=== PATIENT | male | born 1995 | race Caucasian/White ===

== ENCOUNTER 2025-04-17 15:59 | Emergency (ER) | payer MEDICAID, OTHER ==
[~2025-04-17] VITALS: Ht 180.3 cm; Wt 74.8 kg
[2025-04-17] MEDS ORDERED: DOXY100C5 PO (16:49)
[2025-04-17 17:26] LABS: HIV-1 p24 ANTIGEN NON REACTIVE (NONREACTIVE); HIV-1/2 ANTIBODY NON REACTIVE (NONREACTIVE)
[2025-04-17] MEDS ORDERED: CEFTRIAXONE 500 MG VIAL ONE (17:36)
[2025-04-17] MEDS: CEFTRIAXONE 500 MG VIAL IM ONE (17:42)
[2025-04-17 18:03] VITALS: BP 134/72; O2SAT 98
[2025-04-20 07:07] LABS: *CHLAMYDIA NAA Negative (Negative); *GC NAA Negative (Negative); *TRIC.VAG. NAA Negative (Negative)
[2025-04-21 04:07] LABS: HEPATITIS B SURFACE AB, QUAL Reactive (.); HEPATITIS B SURFACE AG Negative (Negative); HEPATITIS C VIRUS ANTIBODY Non Reactive (Non Reactive)
== END 2025-04-17 18:04 | disposition home or self-care (01) ==
LOC: ER 16:12
DX: A54.01 Gonococcal cystitis and urethritis, unspecified (principal); Z79.899 Other long term (current) drug therapy
CPT/HCPCS: 99283; 86592; 87806; 96372; 86803; 87340; 87491; 86706; J0696; 36415; A4606; A4663